=== PATIENT | male | born 1990 | race Caucasian/White ===

== ENCOUNTER 2023-12-06 10:51 | Emergency (ER) | payer OTHER, SELFPAY ==
[2023-12-06 11:11] VITALS: BP 123/80; PULSE 75; RESP 16; TEMP 36.6; O2SAT 99
[2023-12-06 13:51] VITALS: BP 122/97; PULSE 62; RESP 16; O2SAT 100
--- NOTE | 2023-12-06 14:03 | ED_ITS ---
HPI - Chest Pain General Date Seen: 12/06/23 Chief Complaint: Chest Pain Stated Complaint: Abnormal EKG per Dr. Echeverria Time Seen by Provider: 12/06/23 13:47 History of Present Illness HPI narrative: This is a very pleasant 31-year-old male with no significant past medical history was referred to the ER today from [facility] with concern for chest pain. He has no history of any heart disease, lung disease, GERD, or other medical problems. He started developing chest pain Wednesday evening a couple of hours after dinner. He initially thought it was probably just some heartburn from the soup he had had for dinner (a chowder). It was fairly mild. It felt like a pressure distal left of his upper sternum. It did not radiate from there. No back pain. No pleuritic component. No shortness of breath. No palpitations. No nausea. No abdominal pain. No fever. No cough. Since it was so mild he went to bed thinking it was probably heartburn. However the pain was there again on Wednesday morning when he woke up. It has been coming and going since then. No pattern. No relationship to exertion. No relationship to food. It tends to be a mild pressure. He thinks it is probably either anxiety or just heartburn but because it in his chest he wanted to go to the urgent care just to make sure he was okay. At the urgent care he had an abnormal EKG and was sent here to the ER. He also had labs drawn at the urgent care but does not know the results. Through electronic health record, labs from Urgent Care today: WBC 5.2, hemoglobin 14.9, platelet count to 14 Triglycerides 84, cholesterol 150, LDL 65, HDL 68 Glucose 105, BUN 15, creatinine 1.2, sodium 138, potassium 4.4, chloride 100, bicarb 27 Troponin 0.00 Related Data Home Medications ?Medication ?Instructions ?Recorded ?Confirmed No Known Home Medications 12/06/23 12/06/23 Allergies Allergy/AdvReac Type Severity Reaction Status Date / Time No Known Drug Allergies Allergy Verified 12/06/23 09:27 [facility] Social History Smoking Status: Never smoker How often do you have a drink containing alcohol: never AUDIT-C Alcohol total score: 0 Non-prescribed substance use: denies use Exam Narrative Exam Narrative: Constitutional: Appears well-developed and well-nourished. Alert. Conversant. Non toxic. HENT: Head: Atraumatic. Nose: Nose normal. Mouth/Throat: Oral mucosa is clear and moist. no trismus. Pharynx normal. Tonsils symmetric. No tonsillar enlargement, erythema, or exudate. Eyes: Conjunctivae normal. EOM normal. Pupils equal, round, and reactive to light. No scleral icterus. Neck: Normal range of motion. Neck supple. No tracheal deviation present. No JVD Cardiovascular: Normal rate, regular rhythm. No gallop. No friction rub. No murmur heard. Symmetric radial and PT artery pulses Pulmonary/Chest: Effort normal. No stridor. No respiratory distress. No wheezes. No rales. No rhonchi . No tenderness. Abdominal: Soft. Bowel sounds normal. No distension. No mass. No tenderness. No rebound. No guarding. Musculoskeletal: RUE: Normal range of motion. No tenderness. No deformity LUE: Normal range of motion. No tenderness. No deformity RLE: Normal range of motion. No edema. No tenderness. No deformity LLE: Normal range of motion. No edema. No tenderness. No deformity Neurological: Alert and oriented to person, place, and time. Normal strength. CN II-VII intact. No sensory deficit. GCS eye subscore is 4. GCS verbal subscore is 5. GCS motor subscore is 6. Normal coordination Skin: Skin is warm and dry. No rash noted. No pallor. Normal capillary refill. Psychiatric: Normal mood. Normal affect. Const Vital Signs, click to edit/add: Vital Signs - 24 hr 12/06/23 11:11 12/06/23 13:51 12/06/23 14:28 Temperature 98 F Pulse Rate 62 53 L Pulse Rate [Pulse Oximeter] 75 Respiratory Rate 16 16 14 Blood Pressure 122/97 H 112/70 Blood Pressure [Right Upper Arm] 123/80 Pulse Oximetry 99 100 100 Oxygen Delivery Method Room Air 12/06/23 14:31 12/06/23 15:00 Temperature 98 F Pulse Rate 70 Pulse Rate [Pulse Oximeter] 75 Respiratory Rate 12 12 Blood Pressure 108/77 Blood Pressure [Right Upper Arm] 123/80 Pulse Oximetry 99 Oxygen Delivery Method Course Vital Signs Vital signs: Initial Vital Signs Temperature 98 F 12/06/23 11:11 Temperature Source Temporal Artery Scan 12/06/23 11:11 Pulse Rate 75 12/06/23 11:11 Respiratory Rate 16 12/06/23 11:11 Blood Pressure 123/80 12/06/23 11:11 Blood Pressure Mean 94 12/06/23 11:11 Blood Pressure Position Sitting 12/06/23 11:11 Pulse Oximetry 99 12/06/23 11:11 Oxygen Delivery Method Room Air 12/06/23 11:11 Vital Signs Temperature 98 F 12/06/23 11:11 Pulse Rate 75 12/06/23 11:11 Respiratory Rate 16 12/06/23 11:11 Blood Pressure 123/80 12/06/23 11:11 Pulse Oximetry 99 12/06/23 11:11 Oxygen Delivery Method Room Air 12/06/23 11:11 Temperature 98 F 12/06/23 15:00 Pulse Rate 75 12/06/23 15:00 Respiratory Rate 12 12/06/23 15:00 Blood Pressure 123/80 12/06/23 15:00 Pulse Oximetry 99 12/06/23 14:31 Oxygen Delivery Method Room Air 12/06/23 11:11 MDM - Chest Pain MDM Narrative Medical decision making narrative: This patient presents to the ER today for evaluation of chest pain ongoing almost all the time since Wednesday evening, 2 days ago. No exertional component.. Differential was broad. No evidence of palpitations, syncope or other cardiac dysrhythmia. He was referred to the ER by urgent care for an abnormal EKG. They were concerned about possible LVH although by my read I do not think that he has LVH. He does have some ST segment abnormalities highly suggestive of benign early repolarization and not suggestive of ischemia. I think this EKG is highly suggestive of benign early repolarization. I reviewed with my partner today to make sure she agreed and she does. Much much less likely would be pericarditis. However the patient has no positional component to his pain and if anything the pain is perhaps slightly last noticeable when he lays down and more noticeable sitting up or leaning forward. No pleuritic component. No pain with moving his chest. We considered possible ACS, however workup with EKG and troponin is negative. HEART score is 0. Given time since onset of symptoms, I do not think the patient needs to be admitted for further sets of enzymes. Clinical presentation not suggestive of myocarditis. Chest x-ray shows no evidence for pneumonia, pneumothorax, pulmonary edema, pleural effusion, rib fracture, cardiomegaly. Mediastinum is normal on the x-ray. The patient has no ripping or tearing pain through to the back and has symmetric pulses on exam, no other acute neuro findings so I doubt aortic dissection. Risk of radiation and contrast exposure would outweigh the benefit of CT angiogram. We considered PE for this patient. He is overall very low risk and is negative by PERC so will hold off on D-dimer testing. No wheezing or bronchospasm to suggest COPD/asthma. No signs of chest wall cellulitis, shingles, injury. With reasonable clinical confidence, I think the patient is safe for outpatient follow up. Discussed return precautions. Questions answered. Patient voices comfort with the plan. ECG Data Interpretation: Normal sinus rhythm with sinus arrhythmia Rate: 71 AK: 170 QRS axis: Normal axis. No pathologic Q-waves. ST segment/T wave: Concave upward ST elevation in leads 2, 3, AVF, V4-V6 suggestive of benign early repolarization. QTc: 408 EKG from urgent care done at 9:56 a.m. Sinus bradycardia Rate: 58 AK: 186 QRS axis: Normal axis ST segment/T wave: No pathologic Q-waves. ST segment elevation lead 2, 3, AVF, V6. Suspicious for benign early repolarization. QTc: 386 Discharge Plan Discharge Clinical Impression: Chest pain Patient Disposition: Home, Self-Care Condition: Stable Instructions: Chest Pain (DC) Additional Instructions: As we discussed, so far your workup looks reassuring. However, I want she to monitor your symptoms carefully. If you have worsening pain, or any other new symptoms such as palpitations, dizzy spells, trouble breathing, or for having changing or new pains, please come back to the ER right away to be rechecked. To treat her pain, it is safe and reasonable to use ibuprofen 600 mg per dose, up to 3 times per day, as needed. Even if you are getting better, please recheck with your doctor or the urgent care within 1-2 weeks. Prescriptions: No Action No Known Home Medications Follow Up/Referrals: Provider,Not a Local [Primary Care Provider] - Stand Alone Forms: [employer] Info Instructions
[2023-12-06 14:28] VITALS: BP 112/70; PULSE 53; RESP 14; O2SAT 100
[2023-12-06 14:31] VITALS: BP 108/77; PULSE 70; RESP 12; O2SAT 99
[2023-12-06 15:00] VITALS: BP 123/80; PULSE 75; RESP 12; TEMP 36.6
== END 2023-12-06 15:10 | disposition home or self-care (01) ==
LOC: ED 14:51
PROVIDERS: Emergency Provider Emergency Medicine
DX: R07.9 Chest pain, unspecified (principal)
CPT/HCPCS: 80061; 99282; 99284